=== PATIENT | female | born 1950 | race Caucasian/White ===

== ENCOUNTER 2019-09-19 12:35 | Inpatient (IN) | payer MEDICARE ==
[~2019-09-19] VITALS: Ht 167.6 cm; Wt 83.4 kg
[2019-09-19] MEDS ORDERED: SODIUM CHLORIDE 0.9% 500 ML IVB ONE (13:11)
[2019-09-19] MEDS ORDERED: SODIUM CHLORIDE 0.9% 1,000 ML IV ONE ×2 (13:11→16:00)
[2019-09-19] MEDS ORDERED: METOCLOPRAMIDE HCL 5MG/ml INJ 2ml VIAL IV ONE (13:15)
[2019-09-19] MEDS ORDERED: NALBUPHINE HCL 10 MG/1ml INJECTION IV ONE (13:15)
[2019-09-19 13:32] LABS: Basophils # (auto) 0.1 uL; Basophils % (auto) 1.1 % (0.0-2.0); Eosinophils # (auto) 0.1 uL; Eosinophils % (auto) 1.5 % (0.0-7.0); Hematocrit 47.6 % (36.0-46.0); Hemoglobin 16.4 g/dL (12.2-16.2); Lymphocytes # (auto) 2.1 uL; Lymphocytes % (auto) 29.2 % (10.0-50.0); Mean Corpuscular Hemoglobin 31.2 pg (28.0-32.0); Mean Corpuscular Hgb Conc. 34.4 g/dL (32.0-36.0); Mean Corpuscular Volume 90.8 fL (80.0-100.0); Monocytes # (auto) 0.8 uL; Monocytes % (auto) 10.8 % (0.0-12.0); Neutrophils # (auto) 4.1 uL; Neutrophils % (auto) 57.4 % (37.0-80.0); Nucleated Red Blood Cells % 0.3 %; Platelet Count (auto) 276 10^3/uL (140-450); Red Blood Cells 5.25 10^6/uL (4.0-5.20); Red Cell Distribution Width 13.7 % (11.8-14.3); White Blood Cell 7.1 10^3/uL (4.4-10.8)
[2019-09-19 13:44] LABS: Albumin 4.4 g/dL (3.4-5.0); BUN/Creatinine Ratio 7.1; Calcium 9.4 mg/dL (8.5-10.1); Magnesium 2.1 mg/dL (1.6-2.6); Potassium 4.1 mmol/L (3.5-5.1)
[2019-09-19 13:47] LABS: Bilirubin, Total 0.6 mg/dL (0.2-1.0); Total Protein 8.5 g/dL (6.4-8.2)
[2019-09-19 13:53] LABS: Urine Bacteria MANY /hpf (None Seen); Urine Blood 1+ /uL (Negative); Urine Hyaline Cast FEW /lpf (0 - 2); Urine Mucus FEW (None Seen); Urine Specific Gravity 1.014 (1.001-1.035); Urine WBC 14 /hpf (0 - 5)
[2019-09-19] MEDS ORDERED: cefTRIAXone 1GM/50ML D5W 50 ML IV ONE (14:30)
[2019-09-19] MEDS ORDERED: ONDANSETRON HCL 4 MG/2 ML VIAL IV ONE (15:45)
[2019-09-19] MEDS ORDERED: MORPHINE SULF INJ 2 MG/ML SYRINGE 1ML IV ONE (15:45)
[2019-09-19] MEDS ORDERED: NITROGLYCERIN 0.4 MG SL TAB SL PRN (16:00)
[2019-09-19] MEDS ORDERED: MORPHINE SULF INJ 2 MG/ML SYRINGE 1ML IV PRN ×2 (16:00)
[2019-09-19] MEDS ORDERED: METOPROLOL SUCCINATE XL 50 MG TAB PO ONE (16:00)
--- NOTE | 2019-09-19 17:00 | NUR ---
PATIENT ADMITTED FROM ER: PATIENT AMBULATED TO BED FROM WHEELCHAIR, RESPIRATIONS EVEN AND UNLABORED. PATIENT ORIENTED TO TELE UNIT, ROOM 217 BED B TO THIS RN. VS OBTAINED, BP 181/80, PHILLIP COTE CALLED FOR PRN. WILL ADMINISTER ORDERED. PATIENT ORIENTATED TO CALL LIGHT, AND RETURNED DEMONSTRATION. CALL LIGHT WITHIN REACH, BED IN LOWEST LOCKED POSITION, FALL PRECAUTIONS IN PLACE. WILL ENDORSE CARE TO NOC RN.
[2019-09-19 17:44] VITALS: BP 181/80
[2019-09-19 17:53] VITALS: BP 181/94
[2019-09-19] MEDS ORDERED: INFLUENZA QUAD 2019-2020 0.5ml SYRG IM ONE (18:00)
--- NOTE | 2019-09-19 18:00 | NUR ---
BLOOD PRESSURE MED GIVEN, PAIN MEDS GIVEN ORDERED. THIS RN WILL RE-ASSESS ACCORDING TO PROTOCOL.
[2019-09-19] MEDS: LABETALOL HCL 5 MG/ML ML 20ML VIAL IV PRN (18:14)
[2019-09-19] MEDS: D5W/ SOD CHL 0.9%/KCL 20MEQ 1,000 ML IV SCH ×2 (18:14→21:57)
[2019-09-19] MEDS: HYDROmorphone HCL 2 MG TAB PO PRN ×2 (18:15→23:05)
--- NOTE | 2019-09-19 19:22 | NUR ---
CARE ENDORSED TO ALYSON SEPULVEDA.
--- NOTE | 2019-09-19 19:30 | NUR ---
ASSUMED CARE, PT. AWAKE, NO C/O PAIN, NOT IN DISTRESS.
[2019-09-19 21:30] VITALS: BP 161/76
[2019-09-19] MEDS: metroNIDAZOLE 500MG/100ML 100 ML IV SCH (21:56)
[2019-09-19] MEDS: FAMOTIDINE (10MG/ML) 2ML VL IV SCH (21:56)
[2019-09-20] MEDS: LORazepam 2MG/ML-1ML VIAL IV PRN ×3 (01:00→23:28)
[2019-09-20] MEDS: HYDROmorphone HCL 2 MG TAB PO PRN ×3 (03:41→12:20)
[2019-09-20 05:00] VITALS: BP 149/85
[2019-09-20] MEDS: metroNIDAZOLE 500MG/100ML 100 ML IV SCH ×3 (05:08→21:16)
[2019-09-20 06:44] LABS: Basophils # (auto) 0.1 uL; Basophils % (auto) 0.9 % (0.0-2.0); Eosinophils # (auto) 0.2 uL; Eosinophils % (auto) 3.8 % (0.0-7.0); Hematocrit 41.9 % (36.0-46.0); Hemoglobin 14.2 g/dL (12.2-16.2); Lymphocytes # (auto) 1.2 uL; Lymphocytes % (auto) 20.2 % (10.0-50.0); Mean Corpuscular Hemoglobin 31.6 pg (28.0-32.0); Mean Corpuscular Hgb Conc. 33.9 g/dL (32.0-36.0); Mean Corpuscular Volume 93.2 fL (80.0-100.0); Monocytes # (auto) 0.7 uL; Monocytes % (auto) 11.3 % (0.0-12.0); Neutrophils # (auto) 3.9 uL; Neutrophils % (auto) 63.8 % (37.0-80.0); Nucleated Red Blood Cells % 0.1 %; Platelet Count (auto) 222 10^3/uL (140-450); Red Blood Cells 4.49 10^6/uL (4.0-5.20); Red Cell Distribution Width 13.6 % (11.8-14.3); White Blood Cell 6.1 10^3/uL (4.4-10.8)
[2019-09-20 07:13] LABS: Potassium 3.7 mmol/L (3.5-5.1)
[2019-09-20 07:19] LABS: Albumin 3.4 g/dL (3.4-5.0); Calcium 7.7 mg/dL (8.5-10.1)
--- NOTE | 2019-09-20 07:20 | NUR ---
Opening Shift Note Assumed care of patient, awake and alert x4. No S/S of distress or SOB. Right shoulder/ right sided abdominal pain reported at 9/10, will medicate per MD orders. Updated on POC and instructed to call for assistance as needed, patient verbalized understanding. Bed locked in lowest position, side rails up x2, call light within reach. Will monitor for changes Q1hr and PRN.
[2019-09-20 07:21] LABS: Bilirubin, Total 0.5 mg/dL (0.2-1.0); Total Protein 6.9 g/dL (6.4-8.2)
[2019-09-20] MEDS: cefTRIAXone 1GM/50ML D5W 50 ML IV SCH (08:20)
[2019-09-20 09:00] VITALS: BP 180/79
--- NOTE | 2019-09-20 09:05 | NUR ---
EKG completed and in chart
[2019-09-20] MEDS: LISINOPRIL 10 MG TAB PO SCH (09:48)
[2019-09-20] MEDS: METOPROLOL SUCCINATE XL 50 MG TAB PO SCH (09:49)
[2019-09-20] MEDS: FAMOTIDINE (10MG/ML) 2ML VL IV SCH ×2 (09:49→21:17)
[2019-09-20] MEDS: D5W/ SOD CHL 0.9%/KCL 20MEQ 1,000 ML IV SCH ×2 (09:49→20:04)
--- NOTE | 2019-09-20 12:00 | NUR ---
IV removal IV DC'd with clean sterile technique, catheter fully intact. Pressure dressing applied to site. Patient tolerated well. NOTE: [Left Ac leaking]
--- NOTE | 2019-09-20 12:30 | NUR ---
IV insertion IV access obtained, via clean sterile technique by inserting 20 gauge catheter at right AC after 3 attempt(s). IV secured properly. No trauma to site. Patient tolerated well.
[2019-09-20] MEDS ORDERED: HYDROmorphone HCL 2 MG TAB PO ONE (12:45)
--- NOTE | 2019-09-20 14:45 | NUR ---
Patient complains of lower right chest pain Stat EKG performed and strip read by Dr. Spence. Vitals stable: BP 151/89, HR 73, O2 96%, RR 18. Notified RANGE ECOLOGIST Richardson of EKG reading, no new orders were received. Pain is not cardiac related per RANGE ECOLOGIST Richardson. Administered Ativan per MD orders .
[2019-09-20 17:27] VITALS: BP 180/96
[2019-09-20 17:29] VITALS: BP 153/87
--- NOTE | 2019-09-20 18:00 | NUR ---
PAGED HOSPITALIST REGARDING PATIENT REQUESTING ATIVAN MORE FREQUENT THEN PRN 12 HOURS.
--- NOTE | 2019-09-20 18:20 | NUR ---
SPOKE WITH DR. EDWARDS RECEIVED NEW ORDERS FOR ATIVAN Q6HR PRN.
--- NOTE | 2019-09-20 18:57 | NUR ---
Patient Rounds Patient resting in bed with eyes closed, no s/s of distress or SOB. Will endorse care to hotel night auditor RN.
--- NOTE | 2019-09-20 19:55 | NUR ---
ASSUMED CARE, PT. AWAKE, NO C/O PAIN AT THIS TIME, NOT IN DISTRESS.
[2019-09-20] MEDS: TEMAZEPAM 15 MG CAP PO PRN (20:04)
[2019-09-20 22:00] VITALS: BP 159/87
--- NOTE | 2019-09-20 23:00 | NUR ---
pt. got confused pulled out her iv, and crying, re: orient pt. to her name, place, age and time, pt. answers well, to keep monitor.
[2019-09-21] MEDS: HYDROmorphone HCL 2 MG TAB PO PRN ×4 (02:17→22:59)
[2019-09-21 05:00] VITALS: BP 150/83
[2019-09-21] MEDS: metroNIDAZOLE 500MG/100ML 100 ML IV SCH ×3 (05:01→22:32)
--- NOTE | 2019-09-21 06:20 | NUR ---
v/s stable, no periods of confusion, npo maintained, no c/o pain, no sob.
--- NOTE | 2019-09-21 07:30 | NUR ---
Opening Shift Note Assumed care of patient, awake and alert. No S/S of distress/SOB or pain. Bed is in lowest position with 2x side rails up for safety. Instructed on POC and to call for assist PRN, will continue to monitor for changes Q1hr and PRN.
[2019-09-21 08:00] VITALS: BP 146/88
[2019-09-21] MEDS: D5W/ SOD CHL 0.9%/KCL 20MEQ 1,000 ML IV SCH ×2 (08:00→18:00)
[2019-09-21 08:35] VITALS: BP 146/88
[2019-09-21 08:38] LABS: INR 1.04 (0.9-1.15); Partial Thromboplastin Time 25.9 sec (23.64-32.05)
[2019-09-21] MEDS: cefTRIAXone 1GM/50ML D5W 50 ML IV SCH (08:59)
[2019-09-21] MEDS: LORazepam 2MG/ML-1ML VIAL IV PRN ×2 (08:59→20:52)
--- NOTE | 2019-09-21 09:37 | NUR ---
PATIENT CLEARED FROM CARDIOLOGY JOVANNA CHAVEZ NP. ECHO READ BY TIMOTHY EF 55% . WILL PAGE DR BREEN PER DR MOTA REQUEST TO NOTIFY THAT PATIENT IS CLEARED.
[2019-09-21] MEDS: FAMOTIDINE (10MG/ML) 2ML VL IV SCH ×2 (10:10→22:31)
[2019-09-21] MEDS: LISINOPRIL 10 MG TAB PO SCH (10:11)
[2019-09-21] MEDS: METOPROLOL SUCCINATE XL 50 MG TAB PO SCH (10:13)
--- NOTE | 2019-09-21 10:30 | NUR ---
DR MOTA AT NURSING STATION. DR MOTA CALLED DR BREEN PERSONALLY REGARDING CARDIAC CLEARANCE AND THE NEED FOR SURGERY.
[2019-09-21 13:00] VITALS: BP 137/83
[2019-09-21] MEDS: ACETAMINOPHEN 500 MG TAB PO PRN (13:11)
--- NOTE | 2019-09-21 13:45 | NUR ---
Patient taken down for scheduled surgery.
[2019-09-21] MEDS ORDERED: LIDOCAINE W/ EPINEPHRINE 2% INJ 20ML VIAL ONE (14:06)
[2019-09-21] MEDS ORDERED: SUCCINYLCHOLINE CHLORIDE 20 MG/ML 10ML VIAL IV ONE (14:06)
[2019-09-21] MEDS ORDERED: DOXAPRAM HCL 20 MG/ML 20ML VIAL INJ IV ONE (14:07)
[2019-09-21] MEDS ORDERED: SODIUM CHLORIDE LOCK 10 ML ONE (14:14)
[2019-09-21] MEDS ORDERED: ROCURONIUM 10MG/ML 10ML VIAL IV ONE (14:14)
[2019-09-21] MEDS ORDERED: PROPOFOL 10 MG/ML 20 ML IV ONE (14:14)
[2019-09-21] MEDS ORDERED: MIDAZOLAM HCL 1MG/1ML-2 ML VIAL ONE (14:14)
[2019-09-21] MEDS ORDERED: ONDANSETRON HCL 4 MG/2 ML VIAL ONE (14:14)
[2019-09-21] MEDS ORDERED: NEOSTIGMINE 1 MG/ML INJ (10mg/10ML VIAL) ONE (14:14)
[2019-09-21] MEDS ORDERED: HYDROmorphone HCL 2 MG/ML VL ONE ×2 (14:14→17:33)
[2019-09-21] MEDS ORDERED: GLYCOPYRROLATE 0.2 MG/ML 1ML VIAL ONE (14:14)
[2019-09-21] MEDS ORDERED: fentaNYL CITRATE 100 MCG/2 ML VL ONE (14:14)
[2019-09-21] MEDS ORDERED: METOCLOPRAMIDE HCL 5MG/ml INJ 2ml VIAL IV PRN (14:45)
[2019-09-21] MEDS ORDERED: MORPHINE SULF INJ 2 MG/ML SYRINGE 1ML IV PRN (14:45)
[2019-09-21] MEDS ORDERED: fentaNYL CITRATE 100 MCG/2 ML VL IV PRN (14:45)
[2019-09-21] MEDS ORDERED: ceFAZolin 1GM/50ML 50 ML IV ONE (14:49)
[2019-09-21] MEDS ORDERED: BUPIVACAINE 0.25% INJ 50ML VIAL ONE (16:25)
[2019-09-21] MEDS: HYDROmorphone HCL 2 MG/ML VL IV PRN ×2 (17:35→17:45)
--- NOTE | 2019-09-21 17:59 | NUR ---
PT DOWN FOR PROCEDURE Addendum: 09/21/19 at 1800 by Zina Lee RN RN Amended: Links added.
[2019-09-21 21:43] VITALS: BP 146/94
--- NOTE | 2019-09-21 23:08 | NUR ---
IV insertion IV access obtained, via clean sterile technique by inserting 22 gauge catheter at left hand after 1 attempt. IV secured properly. No trauma to site. Patient tolerated well.
--- NOTE | 2019-09-21 23:13 | NUR ---
IV removal IV DC'd with clean sterile technique, catheter fully intact. Pressure dressing applied to site. Patient tolerated well.
[2019-09-21] MEDS: TEMAZEPAM 15 MG CAP PO PRN (23:55)
[2019-09-22] MEDS: HYDROmorphone HCL 2 MG TAB PO PRN ×4 (03:36→22:08)
[2019-09-22] MEDS: LORazepam 2MG/ML-1ML VIAL IV PRN ×3 (03:42→18:34)
[2019-09-22] MEDS: D5W/ SOD CHL 0.9%/KCL 20MEQ 1,000 ML IV SCH ×2 (04:00→14:14)
[2019-09-22 05:07] VITALS: BP 148/94
[2019-09-22] MEDS: metroNIDAZOLE 500MG/100ML 100 ML IV SCH ×3 (05:56→22:07)
[2019-09-22 08:15] VITALS: BP 146/88
--- NOTE | 2019-09-22 08:15 | NUR ---
Opening Note Received report on the patient. Awake lying in bed eating breakfast. Patient shows no signs of distress at this time. Discussed plan of care with the patient. Bed is in the lowest position, side rails up x2, and the call light is within reach. Will continue to monitor.
[2019-09-22 09:00] VITALS: BP 156/94
[2019-09-22] MEDS: cefTRIAXone 1GM/50ML D5W 50 ML IV SCH (09:07)
[2019-09-22] MEDS: METOPROLOL SUCCINATE XL 50 MG TAB PO SCH (09:08)
[2019-09-22] MEDS: FAMOTIDINE (10MG/ML) 2ML VL IV SCH ×2 (09:09→22:07)
[2019-09-22] MEDS: ACETAMINOPHEN 500 MG TAB PO PRN (09:10)
[2019-09-22] MEDS: LISINOPRIL 10 MG TAB PO SCH (09:10)
[2019-09-22 12:30] VITALS: BP 144/92
--- NOTE | 2019-09-22 16:00 | NUR ---
PT REPORTS THAT SHE JUST WALKED BACK FROM THE BATHROOM AND IS TIRED. ATTEMPT P.T. TOMORROW.
[2019-09-22 16:57] VITALS: BP 159/88
[2019-09-22] MEDS: TEMAZEPAM 15 MG CAP PO PRN (18:37)
--- NOTE | 2019-09-22 19:20 | NUR ---
OPENING SHIFT NOTE Assumed care of patient who is A&O x4. Currently on RA with no s/s of SOB or distress. Reports 7/10 abdominal pain. Discussed pain medication schedule with patient, who verbalizes understanding. Abdominal binder is in place. Patient is ambulating to restroom with standby assist. POC discussed with patient who verbalizes understanding. Bed is in low locked position with side rails up x2. Call light is within reach and patient encouraged to call for assistance when needed. Will continue to monitor for changes PRN.
[2019-09-22 22:00] VITALS: BP 149/71
--- NOTE | 2019-09-22 22:13 | NUR ---
Urine sample collected and sent to lab via tube system.
[2019-09-23] VITALS (7 sets, daily range): BP systolic 135–155; BP diastolic 76–97
[2019-09-23] MEDS: LORazepam 2MG/ML-1ML VIAL IV PRN ×2 (01:07→17:28)
--- NOTE | 2019-09-23 03:36 | NUR ---
Heart rate increased to 126. Patient is currently ambulating to the restroom. Assisted patient from restroom back to bed. Call light placed within reach. Heart rate decreased to 93 once back in bed.
[2019-09-23] MEDS: HYDROmorphone HCL 2 MG TAB PO PRN (04:48)
[2019-09-23] MEDS: metroNIDAZOLE 500MG/100ML 100 ML IV SCH ×3 (05:41→21:30)
--- NOTE | 2019-09-23 06:28 | NUR ---
Patient up to restroom. Ambulating well with standby assist.
--- NOTE | 2019-09-23 08:10 | NUR ---
Opening Shift Note Received report on the patient. Awake lying in bed. Patient shows no signs of distress at this time. Discussed the plan of care with the patient. Bed is in the lowest position, side rails up x2, and call light is within reach. Will continue to monitor.
[2019-09-23] MEDS: cefTRIAXone 1GM/50ML D5W 50 ML IV SCH (09:16)
[2019-09-23] MEDS: FAMOTIDINE (10MG/ML) 2ML VL IV SCH ×2 (09:16→21:30)
[2019-09-23] MEDS: LISINOPRIL 10 MG TAB PO SCH (09:19)
[2019-09-23] MEDS: METOPROLOL SUCCINATE XL 50 MG TAB PO SCH (09:20)
[2019-09-23] MEDS: D5W/ SOD CHL 0.9%/KCL 20MEQ 1,000 ML IV SCH ×3 (09:22→20:00)
--- NOTE | 2019-09-23 11:10 | NUR ---
Nutrition Assessment Notes please see attached link for complete assessment Est. Needs ABW 71 [id number] kcal (23-25 kcal/kgBW), 71-78 gms pro (1.0-1.1 gms/kgBW). Will continue to monitor pertinent labs and reassess nutrient need prn Addendum: 09/23/19 at [address] Amended: Links added.
--- NOTE | 2019-09-23 19:50 | NUR ---
Opening shift note Assumed care of patient who is currently resting on right side with eyes closed. Respirations are even and non-labored. No distress noted. 22g IV in left hand intact and patent. Flushed with 10ml NS. Bed is in low locked position with side rails up x2. Call light is within reach and patient encouraged to call for assistance when needed. Will continue to monitor for changes PRN.
[2019-09-23] MEDS: TEMAZEPAM 15 MG CAP PO PRN (20:29)
--- NOTE | 2019-09-23 20:57 | NUR ---
IV Leaking IV in left hand is leaking. New IV access obtained, via clean sterile technique by inserting 22 gauge catheter at left wrist after 2 attempts. IV secured properly. No trauma to site. Patient tolerated well. IV removal IV in left hand DC'd with clean sterile technique, catheter fully intact. Pressure dressing applied to site. Patient tolerated well.
[2019-09-24] MEDS: ACETAMINOPHEN 500 MG TAB PO PRN (03:01)
--- NOTE | 2019-09-24 03:04 | NUR ---
patient c/o PAYNE. Medicated with Acetaminophen per orders. Patient states that while using the restroom she inadvertently urinated on part of her gown. Patient has removed the gown and is declining putting on a new gown. Clean gown set at the bedside and patient instructed to put in on prior to getting up. Patient verbalizes understanding.
[2019-09-24 04:30] VITALS: BP 157/82
[2019-09-24] MEDS: HYDROmorphone HCL 2 MG TAB PO PRN ×3 (04:56→21:30)
[2019-09-24] MEDS: metroNIDAZOLE 500MG/100ML 100 ML IV SCH ×3 (05:45→21:28)
[2019-09-24] MEDS: LORazepam 2MG/ML-1ML VIAL IV PRN ×3 (05:46→21:29)
[2019-09-24] MEDS: D5W/ SOD CHL 0.9%/KCL 20MEQ 1,000 ML IV SCH ×2 (06:00→16:00)
--- NOTE | 2019-09-24 06:41 | NUR ---
Rounds Patient is resting in bed on left side with eyes closed. No distress noted.
[2019-09-24 08:00] VITALS: BP 156/93
[2019-09-24] MEDS: cefTRIAXone 1GM/50ML D5W 50 ML IV SCH (09:40)
[2019-09-24] MEDS: FAMOTIDINE (10MG/ML) 2ML VL IV SCH ×2 (09:40→21:29)
[2019-09-24] MEDS: LISINOPRIL 10 MG TAB PO SCH (09:41)
[2019-09-24] MEDS: METOPROLOL SUCCINATE XL 50 MG TAB PO SCH (09:41)
[2019-09-24 12:00] VITALS: BP_SYST 139; BP_SYST 155; BP_DIAS 74; BP_DIAS 87
--- NOTE | 2019-09-24 15:32 | NUR ---
AT BEDSIDE DR GUARDADO AT BEDSIDE, DISCUSSING POC WITH PT, PER MD HE WILL ORDER GI CONSULT, PATIENT REPORTS N/V AFTER EACH MEAL, CONT CARE
--- NOTE | 2019-09-24 15:45 | NUR ---
AMBULATION PT AMBULATING, GAIT STEADY, NO DISTRESS NOTED, CONT CARE
--- NOTE | 2019-09-24 16:35 | NUR ---
PAGED DR GUARDADO PAGED, PATIENT C/O PAIN AND CURRENT MEDICATION ORDERED FOR PAIN, NOT DUE, DR GUARDADO CALLED BACK @ 4896, NEW ORDERS RECEIVED FOR NORCO 5/325 MG PO 1 TAB Q6PRN, RBP, CONT CARE
[2019-09-24 17:00] VITALS: BP 152/87
[2019-09-24] MEDS: HYDROcodone-ACET 5/325MG TAB PO PRN (17:39)
[2019-09-24] MEDS: SUCRALFATE 1 GM TAB PO SCH ×2 (17:41→21:29)
--- NOTE | 2019-09-24 19:30 | NUR ---
RECEIVED PATIENT IN BED, AAOX4. NO DISTRESS NOTED. AFEBRILE. INTRODUCED MYSELF TO THE PATIENT. ORIENTATION GIVEN. PATIENT IS ANXIOUS. COMPLAINED OF MILD ABDOMINAL PAIN, BUT TOLERABLE FOR NOW. POCS DISCUSSED WITH PATIENT AND SHOWED UNDERSTANDING. BED KEPT ON LOWEST POSITION. SIDE RAILS UP. CALL LIGHT/TABLE IN REACH. ENCOURAGED AMBULATION WELL. KEPT COMFORTABLE.
[2019-09-24 21:00] VITALS: BP 163/109
[2019-09-24] MEDS: ONDANSETRON HCL 4 MG/2 ML VIAL IV PRN (21:30)
[2019-09-24 22:00] VITALS: BP 155/85
[2019-09-25] VITALS (7 sets, daily range): BP systolic 126–162; BP diastolic 66–100
[2019-09-25] MEDS: D5W/ SOD CHL 0.9%/KCL 20MEQ 1,000 ML IV SCH ×3 (02:08→21:09)
[2019-09-25] MEDS: LORazepam 2MG/ML-1ML VIAL IV PRN ×3 (04:35→21:10)
[2019-09-25] MEDS: metroNIDAZOLE 500MG/100ML 100 ML IV SCH (06:05)
[2019-09-25] MEDS: SUCRALFATE 1 GM TAB PO SCH ×4 (06:06→21:09)
--- NOTE | 2019-09-25 06:07 | NUR ---
ON BED, ASLEEP. STABLE. NO DISTRESS NOTED. FOR MORE CARE AND MANAGEMENT.
[2019-09-25] MEDS: HYDROmorphone HCL 2 MG TAB PO PRN ×2 (06:33→21:10)
[2019-09-25 06:34] LABS: Basophils # (auto) 0.1 uL; Basophils % (auto) 1.8 % (0.0-2.0); Eosinophils # (auto) 0.5 uL; Eosinophils % (auto) 9.8 % (0.0-7.0); Hematocrit 40.4 % (36.0-46.0); Hemoglobin 13.8 g/dL (12.2-16.2); Lymphocytes % (auto) 19.1 % (10.0-50.0); Mean Corpuscular Hemoglobin 31.2 pg (28.0-32.0); Mean Corpuscular Hgb Conc. 34.1 g/dL (32.0-36.0); Mean Corpuscular Volume 91.3 fL (80.0-100.0); Monocytes # (auto) 0.8 uL; Monocytes % (auto) 15.4 % (0.0-12.0); Neutrophils # (auto) 2.8 uL; Neutrophils % (auto) 53.9 % (37.0-80.0); Nucleated Red Blood Cells % 0.2 %; Platelet Count (auto) 209 10^3/uL (140-450); Red Blood Cells 4.43 10^6/uL (4.0-5.20); Red Cell Distribution Width 13.6 % (11.8-14.3); White Blood Cell 5.2 10^3/uL (4.4-10.8)
[2019-09-25 06:43] LABS: Potassium 3.4 mmol/L (3.5-5.1)
[2019-09-25 06:47] LABS: BUN/Creatinine Ratio 7.4; Calcium 8.1 mg/dL (8.5-10.1)
--- NOTE | 2019-09-25 08:00 | NUR ---
Opening Shift Note Assumed care of patient, awake and alert. No S/S of distress/SOB or pain. Instructed on POC and to call for assist PRN, will continue to monitor for changes Q1hr and PRN.
[2019-09-25] MEDS ORDERED: POTASSIUM CHLORIDE 20 MEQ, LIDOCAINE 1% (LOCAL ANESTH.) 2 ML in SODIUM CHL 0.9% 100 ML IV ONE (09:15)
[2019-09-25] MEDS: FAMOTIDINE (10MG/ML) 2ML VL IV SCH (10:33)
[2019-09-25] MEDS: cefTRIAXone 1GM/50ML D5W 50 ML IV SCH (10:33)
[2019-09-25] MEDS: LISINOPRIL 10 MG TAB PO SCH (10:34)
[2019-09-25] MEDS: METOPROLOL SUCCINATE XL 50 MG TAB PO SCH (10:34)
[2019-09-25] MEDS: HYDROcodone-ACET 5/325MG TAB PO PRN (10:40)
[2019-09-25] MEDS: ONDANSETRON HCL 4 MG/2 ML VIAL IV PRN ×2 (13:33→21:10)
--- NOTE | 2019-09-25 13:52 | NUR ---
GI consult Dr. Garcia at bedside, patient was advised. Patient is for EGD on 09/28/19.
--- NOTE | 2019-09-25 19:30 | NUR ---
RECEIVED PATIENT IN BED, AAOX4. NO DISTRESS NOTED. AFEBRILE. INTRODUCED MYSELF TO THE PATIENT. ORIENTATION GIVEN. PATIENT IS CRYING AND IS VERY ANXIOUS. COMPLAINED OF ABDOMINAL PAIN. WILL MEDICATE PATIENT. POCS DISCUSSED WITH PATIENT AND SHOWED UNDERSTANDING. BED KEPT ON LOWEST POSITION. SIDE RAILS UP. CALL LIGHT/TABLE IN REACH. ENCOURAGED AMBULATION WELL. KEPT COMFORTABLE.
[2019-09-25] MEDS: PANTOPRAZOLE 40 MG TAB PO SCH (21:09)
--- NOTE | 2019-09-25 21:30 | NUR ---
DR Tung BREEN IN TO SEE PATIENT.
[2019-09-26 05:00] VITALS: BP 149/90
[2019-09-26 05:52] LABS: Basophils # (auto) 0.1 uL; Basophils % (auto) 0.9 % (0.0-2.0); Eosinophils # (auto) 0.3 uL; Eosinophils % (auto) 4.8 % (0.0-7.0); Hematocrit 40.9 % (36.0-46.0); Hemoglobin 13.9 g/dL (12.2-16.2); Lymphocytes # (auto) 1.3 uL; Lymphocytes % (auto) 19.9 % (10.0-50.0); Mean Corpuscular Volume 91.3 fL (80.0-100.0); Monocytes # (auto) 0.8 uL; Monocytes % (auto) 12.6 % (0.0-12.0); Neutrophils # (auto) 3.9 uL; Neutrophils % (auto) 61.8 % (37.0-80.0); Nucleated Red Blood Cells % 0.1 %; Platelet Count (auto) 231 10^3/uL (140-450); Red Blood Cells 4.48 10^6/uL (4.0-5.20); Red Cell Distribution Width 13.5 % (11.8-14.3); White Blood Cell 6.4 10^3/uL (4.4-10.8)
[2019-09-26] MEDS: SUCRALFATE 1 GM TAB PO SCH ×4 (06:10→21:25)
[2019-09-26] MEDS: HYDROcodone-ACET 5/325MG TAB PO PRN ×2 (06:10→17:07)
--- NOTE | 2019-09-26 06:17 | NUR ---
ON BED, ASLEEP. STABLE. NO DISTRESS NOTED. FOR MORE CARE AND MANAGEMENT.
[2019-09-26 06:19] LABS: Calcium 8.3 mg/dL (8.5-10.1); Potassium 3.5 mmol/L (3.5-5.1)
[2019-09-26 06:22] LABS: BUN/Creatinine Ratio 9.4
[2019-09-26 09:00] VITALS: BP 160/98
[2019-09-26] MEDS: D5W/ SOD CHL 0.9%/KCL 20MEQ 1,000 ML IV SCH ×2 (09:19→17:08)
[2019-09-26] MEDS: PANTOPRAZOLE 40 MG TAB PO SCH ×2 (09:42→21:25)
[2019-09-26] MEDS: METOPROLOL SUCCINATE XL 50 MG TAB PO SCH (09:42)
[2019-09-26] MEDS: cefTRIAXone 1GM/50ML D5W 50 ML IV SCH (09:42)
[2019-09-26] MEDS: LISINOPRIL 10 MG TAB PO SCH (09:43)
[2019-09-26] MEDS: LORazepam 2MG/ML-1ML VIAL IV PRN ×2 (09:54→22:48)
[2019-09-26] MEDS: HYDROmorphone HCL 2 MG TAB PO PRN ×2 (11:33→20:13)
[2019-09-26 13:00] VITALS: BP 153/83
--- NOTE | 2019-09-26 14:12 | NUR ---
Nutrition Follow-up Notes Wt.: 83.4 kg Pt was sleeping with no family by bedside. per records pt s/p lap thor 09/21. pt to have EGD 09/28 as pt with N.V. pt with no distress noted currently on [facility] soft diet with inadequate PO of 50% x 4 per RN doc Est. Needs ABW 71 [id number] kcal (23-25 kcal/kgBW), 71-78 gms pro (1.0-1.1 gms/kgBW). Will continue to monitor pertinent labs and reassess nutrient need prn Labs: GLU 115 H, CA 8.3 L. Skin: Ger scale 20 low risk, incision at site of sx per RN doc GI: Pt has no BM reported per bobbin drier. PES: Altered nutrition related lab values r/t current/chronic medical condition aeb hyperglycemia, hypocalcemia Decreased nutrient needs r/t adiposity aeb pt`s high BMI of 30.0 kg kgm2 Will continue to monitor PO intake, skin status, pertinent labs and weight trend. F/u in 3-5 days. Rec.: 1.) consider ensure enlive 1 carton bid if PO is low. 2) advance diet as medically feasible. 3) refer to [employer] dietitian on DC. 4) continue current plan of care
[2019-09-26 17:00] VITALS: BP 169/88
[2019-09-26] MEDS: LABETALOL HCL 5 MG/ML ML 20ML VIAL IV PRN (18:19)
--- NOTE | 2019-09-26 19:30 | NUR ---
RECEIVED PATIENT FROM DAY SHIFT RN. PATIENT RESTING IN BED. NO S/S OF DISTRESS NOTED. C/O PAIN @ 610 AFTER NORCO GIVEN EARLIER. WILL COME BACK FOR OTHER PAIN MEDICATION LATER PER PATIENT REQUESTS. DRESSING ON ABD C/D/I WITH ABD BINDER ON. POC INSTRUCTED AND ENCOURAGED PATIENT TO CALL FOR CAGE CLERK IF NEEDED. BED IN LOWEST POSITION WITH SIDE RAILS UP X 2. CALL BROWNING WITHIN REACH. CONTINUE TO MONITOR FOR CHANGES Q1H AND PRN.
[2019-09-26] MEDS: TEMAZEPAM 15 MG CAP PO PRN (21:25)
[2019-09-26 22:00] VITALS: BP 137/74
--- NOTE | 2019-09-27 01:12 | NUR ---
ASSISTED PATIENT TO BATHROOM. PATIENT WALKED WELL WITH STEADY GAIT. NO S/S OF DISTRESS NOTED. CONTINUE CARE.
[2019-09-27] MEDS: HYDROmorphone HCL 2 MG TAB PO PRN (02:27)
--- NOTE | 2019-09-27 02:27 | NUR ---
MEDICATED PATIENT FOR PAIN @ 06/23. CONTINUE TO MONITOR.
[2019-09-27] MEDS: HYDROcodone-ACET 5/325MG TAB PO PRN (04:26)
--- NOTE | 2019-09-27 04:27 | NUR ---
PATIENT STILL C/O PAIN. MEDICATED PATIENT FOR PAIN @ 07/24. CONTINUE TO MONITOR.
[2019-09-27 05:00] VITALS: BP 146/85
[2019-09-27] MEDS: D5W/ SOD CHL 0.9%/KCL 20MEQ 1,000 ML IV SCH (05:13)
[2019-09-27] MEDS: LORazepam 2MG/ML-1ML VIAL IV PRN ×2 (05:13→10:11)
--- NOTE | 2019-09-27 05:13 | NUR ---
PATIENT IS ANXIOUS. MEDICATED PATIENT ORDERED. CONTINUE TO MONITOR.
[2019-09-27] MEDS: SUCRALFATE 1 GM TAB PO SCH (07:14)
[2019-09-27] MEDS: ONDANSETRON HCL 4 MG/2 ML VIAL IV PRN (07:35)
[2019-09-27 09:20] VITALS: BP 151/77
[2019-09-27] MEDS: LISINOPRIL 10 MG TAB PO SCH (09:53)
[2019-09-27] MEDS: METOPROLOL SUCCINATE XL 50 MG TAB PO SCH (09:54)
[2019-09-27] MEDS: PANTOPRAZOLE 40 MG TAB PO SCH (09:54)
[2019-09-27] MEDS: cefTRIAXone 1GM/50ML D5W 50 ML IV SCH (09:55)
[2019-09-27 10:35] VITALS: BP 151/77
--- NOTE | 2019-09-27 11:50 | NUR ---
Discharge instructions given as ordered. Encourage to follow up with PMD Dr. Nakia Elizondo on 10-03-19 at 1:45pm # [phone] as instructed. Follow up with GI-Dr. Garcia on 10-16-19 at 8:45am #[phone] ext. [phone] [phone] [phone] and call to make appointment to Dr. Morris's office # [phone]. All questions and concerns addressed. Patient verbalized understanding. Medication reconciliation form completed and copy given to patient. IV removed with catheter intact, pressure dressing applied. Telemetry unit returned to ICU. Patient taken to vehicle via wheelchair with all personal belongings, accompanied by staff and family member. No distress noted at time of departure.
== END 2019-09-27 11:50 | disposition home or self-care (01) | DRG 418 ==
LOC: ER 12:47 → TELE-CENTR 12:48
PROVIDERS: ADMIT Nurse Practitioner Acute Care; ATTEND Family Medicine
PROC: 0FT44ZZ Resection of Gallbladder, Percutaneous Endoscopic Approach (ICD-10-PCS; principal; 2019-09-21 16:02)
DX: K80.00 Calculus of gallbladder with acute cholecystitis without obstruction (principal); N30.00 Acute cystitis without hematuria; I10 Essential (primary) hypertension; K21.9 Gastro-esophageal reflux disease without esophagitis; E66.9 Obesity, unspecified; K76.0 Fatty (change of) liver, not elsewhere classified; K57.30 Diverticulosis of large intestine without perforation or abscess without bleeding; F32.9 Major depressive disorder, single episode, unspecified; Z83.3 Family history of diabetes mellitus; Z88.8 Allergy status to other drugs, medicaments and biological substances
CPT/HCPCS: 36415; 71045; 74176; 80048; 80053; 81001; 83690; 83735; 84484; 85025; 85610; 85730; 86850; 86900; 86901; 87086; 93306; 96361; 96365; 96375; 97163; G0378; J0330; J0690; J0696; J2001; J2250; J2405; J2704; J3490

== ENCOUNTER 2020-04-01 12:48 | Inpatient (IN) | payer MEDICARE ==
[~2020-04-01] VITALS: Ht 167.6 cm; Wt 83.4 kg
[2020-04-01] MEDS ORDERED: SODIUM CHLORIDE 0.9% 1,000 ML IV ONE ×2 (12:58)
[2020-04-01 13:32] LABS: Basophils # (auto) 0.1 10 ^3/uL (0-0.2); Basophils % (auto) 0.6 % (0.0-2.0); Eosinophils # (auto) 0 10 ^3/uL (0-0.8); Hematocrit 48.7 % (36.0-46.0); Hemoglobin 16.7 g/dL (12.2-16.2); Lymphocytes # (auto) 1.1 10 ^3/uL (0.4-5.4); Lymphocytes % (auto) 10.2 % (10.0-50.0); Mean Corpuscular Hemoglobin 32.7 pg (28.0-32.0); Mean Corpuscular Hgb Conc. 34.4 g/dL (32.0-36.0); Mean Corpuscular Volume 95.2 fL (80.0-100.0); Monocytes % (auto) 9.4 % (0.0-12.0); Neutrophils # (auto) 8.3 10 ^3/uL (1.6-8.6); Neutrophils % (auto) 79.8 % (37.0-80.0); Nucleated Red Blood Cells % 0.1 %; Platelet Count (auto) 247 10^3/uL (140-450); Red Blood Cells 5.12 10^6/uL (4.0-5.20); Red Cell Distribution Width 15.5 % (11.8-14.3); White Blood Cell 10.4 10^3/uL (4.4-10.8)
[2020-04-01] MEDS ORDERED: ONDANSETRON HCL 4 MG/2 ML VIAL IV ONE (13:45)
[2020-04-01] MEDS ORDERED: LORazepam 2MG/ML-1ML VIAL IV ONE (13:45)
[2020-04-01 13:47] LABS: INR 1.11 (0.9-1.15); Partial Thromboplastin Time 26.5 sec (23.64-32.05)
[2020-04-01 13:49] LABS: Albumin 4.5 g/dL (3.4-5.0); Calcium 9.7 mg/dL (8.5-10.1)
[2020-04-01 13:55] LABS: BUN/Creatinine Ratio 13.6; Bilirubin, Total 2.3 mg/dL (0.2-1.0); Total Protein 8.9 g/dL (6.4-8.2)
[2020-04-01 13:58] LABS: Potassium 2.8 mmol/L (3.5-5.1)
[2020-04-01] MEDS ORDERED: POTASSIUM CHL 20MEQ/100ML 100 ML IV ONE ×3 (14:00→17:00)
[2020-04-01] MEDS ORDERED: MAGNESIUM SULFATE 1GM/100ML 100 ML IV ONE (14:45)
[2020-04-01] MEDS: POTASSIUM CHL 20 Meq TABLET PO SCH ×2 (14:45→16:45)
[2020-04-01] MEDS ORDERED: D5W/SOD CHL 0.45%/KCL 40MEQ 1,000 ML IV SCH (14:45)
[2020-04-01] MEDS ORDERED: FUROSEMIDE 20 MG/2 ML VIAL IV ONE (14:45)
[2020-04-01] MEDS ORDERED: hydrALAZINE HCL 20 MG/ML VL IV PRN (15:00)
[2020-04-01] MEDS ORDERED: HYDROcodone-ACET 5/325MG TAB PO PRN (15:00)
[2020-04-01] MEDS ORDERED: MORPHINE SULF INJ 2 MG/ML SYRINGE 1ML IV PRN ×2 (15:00)
[2020-04-01] MEDS ORDERED: ALUM & MAG HYDROX-SIMETH LIQ(MAALOX) 30 ML PO PRN (15:00)
[2020-04-01] MEDS ORDERED: NITROGLYCERIN 0.4 MG SL TAB SL PRN (15:00)
[2020-04-01] MEDS ORDERED: ONDANSETRON HCL 4 MG/2 ML VIAL IV PRN (15:00)
[2020-04-01] MEDS ORDERED: DOCUSATE SOD 100 MG CAP PO PRN (15:00)
[2020-04-01] MEDS ORDERED: cloNIDine HCL 0.1 MG TAB PO PRN (16:45)
[2020-04-01] MEDS ORDERED: ALBUTEROL SULF 2.5 MG/0.5ML(0.5%) NEB SOLN NEB PRN (16:45)
[2020-04-01] MEDS ORDERED: IPRATROPIUM BROM 0.5 MG/2.5ML INH SOL NEB PRN ×2 (16:45→19:15)
[2020-04-01] MEDS ORDERED: AMIODARONE HCL 150 MG in D5W 5% 100 ML IV ONE (17:00)
[2020-04-01] MEDS ORDERED: AMIODARONE 450mg/250ml AE 250 ML IV SCH ×2 (17:04→23:05)
[2020-04-01 17:53] LABS: Urine Bacteria NONE SEEN /hpf (None Seen); Urine Blood TRACE /uL (Negative); Urine Hyaline Cast FEW /lpf (0 - 2); Urine Specific Gravity 1.007 (1.001-1.035); Urine WBC 1 /hpf (0 - 5)
[2020-04-01 18:06] LABS: Alcohol, Urine < 3.0 mg/dL (0-5); Amphetamine Screen, Urine NEGATIVE (NEGATIVE); Barbiturate Scree,Urine NEGATIVE (NEGATIVE); Benzodiazephine Screen, Urine NEGATIVE (NEGATIVE); Cannabinoid Screen, Urine NEGATIVE (NEGATIVE); Cocaine Screen, Urine NEGATIVE (NEGATIVE); Opiate Scree,Urine NEGATIVE (NEGATIVE); Phencyclidine Screen, Urine NEGATIVE (NEGATIVE)
[2020-04-01] MEDS: FUROSEMIDE 20 MG/2 ML VIAL IV SCH (18:27)
[2020-04-01] MEDS: METOPROLOL TARTRATE 1MG/1ML-5ML VIAL IV SCH (18:27)
[2020-04-01 18:46] VITALS: BP 147/87
[2020-04-01 18:58] VITALS: BP 147/67
[2020-04-01] MEDS ORDERED: LORazepam 2MG/ML-1ML VIAL IV PRN (19:15)
[2020-04-01 22:00] VITALS: BP 130/79
[2020-04-01] MEDS: LORazepam 0.5 MG TAB PO PRN (22:51)
[2020-04-01] MEDS: ATORVASTATIN 20 MG TAB PO SCH (22:52)
[2020-04-01] MEDS: traZODone HCL 50 MG TAB PO SCH (22:52)
[2020-04-01] MEDS: NORTRIPTYLINE HCL 10 MG CAP PO SCH (22:53)
[2020-04-02] MEDS: METOPROLOL TARTRATE 1MG/1ML-5ML VIAL IV SCH ×4 (00:29→17:20)
[2020-04-02 05:00] VITALS: BP 127/76
[2020-04-02 06:41] LABS: Basophils # (auto) 0 10 ^3/uL (0-0.2); Basophils % (auto) 0.6 % (0.0-2.0); Eosinophils # (auto) 0.1 10 ^3/uL (0-0.8); Hemoglobin 14.6 g/dL (12.2-16.2); Lymphocytes # (auto) 1.7 10 ^3/uL (0.4-5.4); Lymphocytes % (auto) 22.4 % (10.0-50.0); Mean Corpuscular Hemoglobin 33.1 pg (28.0-32.0); Mean Corpuscular Hgb Conc. 34.9 g/dL (32.0-36.0); Mean Corpuscular Volume 94.9 fL (80.0-100.0); Monocytes # (auto) 0.7 10 ^3/uL (0-1.3); Monocytes % (auto) 9.6 % (0.0-12.0); Neutrophils # (auto) 5.1 10 ^3/uL (1.6-8.6); Neutrophils % (auto) 66.4 % (37.0-80.0); Nucleated Red Blood Cells % 0.1 %; Platelet Count (auto) 169 10^3/uL (140-450); Red Blood Cells 4.43 10^6/uL (4.0-5.20); Red Cell Distribution Width 15.3 % (11.8-14.3); White Blood Cell 7.6 10^3/uL (4.4-10.8)
[2020-04-02] MEDS: FUROSEMIDE 20 MG/2 ML VIAL IV SCH ×2 (06:46→17:19)
[2020-04-02 06:55] LABS: Albumin 3.3 g/dL (3.4-5.0); Anion Gap 8 (5-15); Blood Urea Nitrogen 14 mg/dL (7-18); Calcium 8.2 mg/dL (8.5-10.1); Carbon Dioxide 25 mmol/L (21-32); Chloride 101 mmol/L (98-107); Glucose 122 mg/dL (74-106); Magnesium 2.3 mg/dL (1.6-2.6); Potassium 3.2 mmol/L (3.5-5.1); Sodium 134 mmol/L (136-145)
[2020-04-02 06:57] LABS: INR 1.07 (0.9-1.15); Partial Thromboplastin Time 27.2 sec (23.64-32.05)
[2020-04-02 07:01] LABS: Alanine Aminotransferase 69 U/L (13-56); Alkaline Phosphatase 110 U/L (45-117); Aspartate Aminotransferase 85 U/L (15-37); BUN/Creatinine Ratio 20.3; Bilirubin, Total 1.8 mg/dL (0.2-1.0); GFR African American 109 mL/min; GFR Non-African American 90 mL/min; Phosphorus 1.9 mg/dL (2.5-4.90)
--- NOTE | 2020-04-02 07:25 | NUR ---
Respiratory note: PT ASSESSED FOR PRN MEDNEB. PT FOUND ON RM SP02 94%. PT IS IN DISTRESS.TREATMENT NOT INDICATED. INFORMED PT TO HAVE RT PAGED IF BECOMES SOB.
[2020-04-02 08:00] VITALS: BP 119/69
[2020-04-02] MEDS: ASPirin 81 mg TAB PO SCH (09:16)
[2020-04-02] MEDS: PANTOPRAZOLE 40 MG TAB PO SCH (09:17)
[2020-04-02] MEDS: METOPROLOL SUCCINATE XL 50 MG TAB PO SCH (09:17)
[2020-04-02] MEDS: SERTRALINE HCL 50 MG TAB PO SCH (09:18)
[2020-04-02] MEDS: ENOXAPARIN SOD 40 MG/0.4 ML SYRINGE SC SCH (09:18)
[2020-04-02 09:23] VITALS: BP 119/69
[2020-04-02] MEDS ORDERED: ADENOSINE 72 MG in GIVE UN-DILUTED 0 ML IV STA (09:26)
[2020-04-02] MEDS ORDERED: OPTISON 3ml Vial for INJ IV ONE (09:45)
[2020-04-02] MEDS ORDERED: POTASSIUM EFFERVESENT TAB 25 MEQ PO ONE (11:00)
[2020-04-02 12:38] VITALS: BP 122/66
[2020-04-02 16:36] VITALS: BP 152/83
--- NOTE | 2020-04-02 18:53 | NUR ---
Respiratory note: PRN ASSESSMENT FOR MED NEB TX. PT PRESENTING NO RESPIRATORY DISTRESS AT THIS TIME. HR 99, SPO2 94% ON ROOM AIR, RR 17, BS DIMINISHED/CLEAR. PT PRESENTING NO RESPIRATORY DISTRESS AT THIS TIME. PT STATES MED NEB TX MAKES HER ANXIOUS, REFUSED TX. MED NEB TX NOT INDICATED NOT THIS TIME, WILL CONTINUE TO MONITOR.
[2020-04-02] MEDS ORDERED: METO25TA93 PO (18:55)
[2020-04-02] MEDS ORDERED: ATOR20TA50 PO (18:55)
[2020-04-02] MEDS ORDERED: NORT25CA PO (18:55)
[2020-04-02] MEDS ORDERED: TIZA4CAP PO (18:55)
[2020-04-02 22:00] VITALS: BP 145/95
[2020-04-02] MEDS: ATORVASTATIN 20 MG TAB PO SCH (22:25)
[2020-04-02] MEDS: NORTRIPTYLINE HCL 10 MG CAP PO SCH (22:26)
[2020-04-02] MEDS: traZODone HCL 50 MG TAB PO SCH (22:27)
[2020-04-02] MEDS: LORazepam 0.5 MG TAB PO PRN (22:28)
[2020-04-03 05:00] VITALS: BP 136/80
--- NOTE | 2020-04-03 05:32 | NUR ---
Dr. Richmond called back; order received for Chest/abd x-ray to be done. states he will be in to the hospital 'shortly' and will see pt.
[2020-04-03 05:37] LABS: Basophils # (auto) 0.1 10 ^3/uL (0-0.2); Basophils % (auto) 0.7 % (0.0-2.0); Eosinophils # (auto) 0.2 10 ^3/uL (0-0.8); Eosinophils % (auto) 2.5 % (0.0-7.0); Hematocrit 43.4 % (36.0-46.0); Hemoglobin 15.2 g/dL (12.2-16.2); Lymphocytes # (auto) 1.8 10 ^3/uL (0.4-5.4); Lymphocytes % (auto) 24.4 % (10.0-50.0); Mean Corpuscular Hemoglobin 33.3 pg (28.0-32.0); Mean Corpuscular Hgb Conc. 34.9 g/dL (32.0-36.0); Mean Corpuscular Volume 95.6 fL (80.0-100.0); Monocytes # (auto) 0.8 10 ^3/uL (0-1.3); Monocytes % (auto) 10.2 % (0.0-12.0); Neutrophils # (auto) 4.6 10 ^3/uL (1.6-8.6); Neutrophils % (auto) 62.2 % (37.0-80.0); Platelet Count (auto) 161 10^3/uL (140-450); Red Blood Cells 4.54 10^6/uL (4.0-5.20); Red Cell Distribution Width 15.3 % (11.8-14.3); White Blood Cell 7.4 10^3/uL (4.4-10.8)
[2020-04-03 05:56] LABS: Albumin 3.5 g/dL (3.4-5.0); BUN/Creatinine Ratio 26.7; Calcium 8.2 mg/dL (8.5-10.1)
[2020-04-03 05:59] LABS: Bilirubin, Total 1.3 mg/dL (0.2-1.0); Total Protein 7.6 g/dL (6.4-8.2)
[2020-04-03] MEDS: FUROSEMIDE 20 MG/2 ML VIAL IV SCH (06:04)
[2020-04-03] MEDS: METOPROLOL TARTRATE 1MG/1ML-5ML VIAL IV SCH ×5 (06:05→23:29)
[2020-04-03 06:19] LABS: Potassium 2.8 mmol/L (3.5-5.1)
--- NOTE | 2020-04-03 06:21 | NUR ---
Paged for hospitalist to report critical K of 2.8, received from Maryam Perales in lab.
--- NOTE | 2020-04-03 06:35 | NUR ---
Call from Tele that pt's HR in 120s; found pt supine in bed with freshly brushed hair "and teeth" talking on phone. Denies sx/ no sign of distress. No answer yet from hospitalist. Will endorse to day RN.
[2020-04-03] MEDS ORDERED: POTASSIUM CHL 20 Meq TABLET PO ONE (07:15)
--- NOTE | 2020-04-03 07:16 | NUR ---
CRITICAL VALUE OF POTASSIUM 2.8. PAGED HOSPITAL LIST. JOYCELYN NAVAS RETURNED PAGED AND ORDERED 40 Meq OF PO POTASSIUM.
[2020-04-03 07:48] VITALS: BP 123/86
[2020-04-03] MEDS: NEUTRA-PHOS TABLET PO SCH ×3 (08:24→17:48)
[2020-04-03 08:27] VITALS: BP 123/86
[2020-04-03] MEDS: SERTRALINE HCL 50 MG TAB PO SCH (09:22)
[2020-04-03] MEDS: PANTOPRAZOLE 40 MG TAB PO SCH (09:23)
[2020-04-03] MEDS: ENOXAPARIN SOD 40 MG/0.4 ML SYRINGE SC SCH (09:23)
[2020-04-03] MEDS: METOPROLOL SUCCINATE XL 50 MG TAB PO SCH (09:23)
[2020-04-03] MEDS: ASPirin 81 mg TAB PO SCH (09:23)
[2020-04-03] MEDS ORDERED: POTASSIUM EFFERVESENT TAB 25 MEQ PO ONE (09:30)
[2020-04-03] MEDS ORDERED: IOHEXOL 350 MG/ML 100ML IJ ONE (11:26)
[2020-04-03 12:30] VITALS: BP 129/64
--- NOTE | 2020-04-03 13:22 | NUR ---
PT ASSESSED FOR PRN BREATHING TX. PT IN NO DISTRESS. PT ON RA WITH SPO2 95%, HR 112, RR 20 WITH CLEAR BS. NO INDICATION FOR PRN MED NEB.
[2020-04-03 16:24] VITALS: BP 110/66
--- NOTE | 2020-04-03 18:06 | NUR ---
PT ASSESSED FOR PRN MED NEB TX. SPO2 92% ON RA. PT DENIES ANY RESPIRATORY DISTRESS. NO TX INDICATED. PT IS AWARE TO HAVE RT PAGED IF TX NEEDED.
--- NOTE | 2020-04-03 20:15 | NUR ---
Opening note pt is A&Ox3. respirations are even and nonlabored on room air. no complaints of pain or discomfort at this time. Chicas in place, patent and draining to gravity. POC discussed with patient. bed in low locked position, call light within reach.
[2020-04-03] MEDS: traZODone HCL 50 MG TAB PO SCH (21:24)
[2020-04-03] MEDS: NORTRIPTYLINE HCL 10 MG CAP PO SCH (21:25)
[2020-04-03] MEDS: ATORVASTATIN 20 MG TAB PO SCH (21:25)
[2020-04-03 22:00] VITALS: BP 142/84
--- NOTE | 2020-04-04 02:50 | NUR ---
rounds pt resting in left lateral position with eyes closed. no s/s of pain or discomfort. will continue to monitor.
[2020-04-04 05:00] VITALS: BP 124/84
[2020-04-04 05:14] LABS: BUN/Creatinine Ratio 21.1; Calcium 8.5 mg/dL (8.5-10.1); Potassium 3.1 mmol/L (3.5-5.1)
[2020-04-04] MEDS: METOPROLOL TARTRATE 1MG/1ML-5ML VIAL IV SCH (05:34)
--- NOTE | 2020-04-04 07:17 | NUR ---
closing note pt resting in left lateral position with eyes closed. no s/s of pain or distress. endorsed care to DERICK Sorensen.
--- NOTE | 2020-04-04 07:22 | NUR ---
Opening Shift Note Assumed care of patient, awake and alert. No S/S of distress/SOB or pain. Instructed on POC and to call for assist PRN, will continue to monitor for changes Q1hr and PRN.
[2020-04-04] MEDS: NEUTRA-PHOS TABLET PO SCH ×2 (08:04→13:47)
[2020-04-04] MEDS ORDERED: POTASSIUM CHL 20 Meq TABLET PO ONE (08:15)
[2020-04-04] MEDS ORDERED: POTASSIUM EFFERVESENT TAB 25 MEQ PO ONE (08:30)
[2020-04-04 09:00] VITALS: BP 130/74
[2020-04-04] MEDS: PANTOPRAZOLE 40 MG TAB PO SCH (10:24)
[2020-04-04] MEDS: ASPirin 81 mg TAB PO SCH (10:24)
[2020-04-04] MEDS: ENOXAPARIN SOD 40 MG/0.4 ML SYRINGE SC SCH (10:25)
[2020-04-04] MEDS: METOPROLOL SUCCINATE XL 50 MG TAB PO SCH (10:25)
[2020-04-04] MEDS: SERTRALINE HCL 50 MG TAB PO SCH (10:25)
[2020-04-04] MEDS ORDERED: AMLO10TA13 PO (11:04)
[2020-04-04] MEDS ORDERED: PANT40T PO (11:04)
[2020-04-04] MEDS ORDERED: METO-6 PO (11:04)
[2020-04-04] MEDS ORDERED: LOSA-69 PO (11:06)
[2020-04-04 12:04] VITALS: BP 130/74
[2020-04-04 13:00] VITALS: BP 131/82
--- NOTE | 2020-04-04 15:50 | NUR ---
Discharge instructions given as ordered. Encourage to follow up with PMD as instructed. All questions and concerns addressed. Patient verbalized understanding. Medication reconciliation form completed and copy given to patient. IV removed with catheter intact, pressure dressing applied, lovelace catheter removed. Telemetry unit returned to ICU. Patient taken to vehicle via wheelchair with all personal belongings, accompanied by staff to family member. No distress noted at time of departure.
== END 2020-04-04 15:45 | disposition home or self-care (01) | DRG 280 ==
LOC: ER 12:48 → TELE 12:49 → TELE-WESTW 17:50
PROVIDERS: ADMIT Hospitalist; ATTEND Internal Medicine Nephrology
DX: I11.0 Hypertensive heart disease with heart failure (principal); I21.A1 Myocardial infarction type 2; J96.01 Acute respiratory failure with hypoxia; I16.1 Hypertensive emergency; E44.0 Moderate protein-calorie malnutrition; F10.239 Alcohol dependence with withdrawal, unspecified; I50.33 Acute on chronic diastolic (congestive) heart failure; I45.10 Unspecified right bundle-branch block; E87.6 Hypokalemia; F41.1 Generalized anxiety disorder; D75.1 Secondary polycythemia; E66.9 Obesity, unspecified; E78.5 Hyperlipidemia, unspecified; F32.9 Major depressive disorder, single episode, unspecified; K21.9 Gastro-esophageal reflux disease without esophagitis; J44.9 Chronic obstructive pulmonary disease, unspecified; K76.0 Fatty (change of) liver, not elsewhere classified; Z79.899 Other long term (current) drug therapy; Z90.49 Acquired absence of other specified parts of digestive tract; Z83.3 Family history of diabetes mellitus; Z82.49 Family history of ischemic heart disease and other diseases of the circulatory system; Z88.8 Allergy status to other drugs, medicaments and biological substances; Z79.82 Long term (current) use of aspirin; Z68.28 Body mass index [BMI] 28.0-28.9, adult
CPT/HCPCS: 36415; 36600; 51702; 71045; 71275; 76700; 78452; 80048; 80053; 80061; 80307; 81001; 82805; 82962; 83036; 83690; 83735; 83880; 83970; 84100; 84439; 84443; 84484; 85025; 85379; 85610; 85730; 87040; 93005; 93017; 93306; 94640; 96361; 96365; 96366; 96368; 96375; 99291; G0378; J0153; J2405; J3480; J7060; Q9956

== ENCOUNTER 2020-11-19 19:12 | Emergency (ER) | payer MEDICARE ==
[~2020-11-19] VITALS: Ht 167.6 cm; Wt 68.0 kg
[~2020-11-19 19:12] MED LIST: ATOR20TA50 PO; METO-6 PO; NORT25CA PO; PANT40T PO; TIZA4CAP PO
[2020-11-20] MEDS ORDERED: LIDOCAINE W/ EPINEPHRINE 2% INJ 20ML VIAL ID ONE
[2020-11-20 00:06] LABS: Basophils # (auto) 0.1 10 ^3/uL (0-0.2); Basophils % (auto) 0.7 % (0.0-2.0); Eosinophils # (auto) 0 10 ^3/uL (0-0.8); Eosinophils % (auto) 0.4 % (0.0-7.0); Hematocrit 40.1 % (36.0-46.0); Hemoglobin 13.8 g/dL (12.2-16.2); Lymphocytes # (auto) 2.6 10 ^3/uL (0.4-5.4); Lymphocytes % (auto) 23.5 % (10.0-50.0); Mean Corpuscular Hemoglobin 31.5 pg (28.0-32.0); Mean Corpuscular Hgb Conc. 34.3 g/dL (32.0-36.0); Mean Corpuscular Volume 91.7 fL (80.0-100.0); Monocytes # (auto) 0.7 10 ^3/uL (0-1.3); Monocytes % (auto) 6.5 % (0.0-12.0); Neutrophils # (auto) 7.6 10 ^3/uL (1.6-8.6); Neutrophils % (auto) 68.9 % (37.0-80.0); Nucleated Red Blood Cells % 0.1 %; Platelet Count (auto) 293 10^3/uL (140-450); Red Blood Cells 4.37 10^6/uL (4.0-5.20); Red Cell Distribution Width 14.8 % (11.8-14.3)
[2020-11-20 01:02] LABS: Albumin 3.7 g/dL (3.4-5.0); Calcium 8.3 mg/dL (8.5-10.1); Carbon Dioxide 27 mmol/L (21-32); GFR African American 90 mL/min; GFR Non-African American 75 mL/min; Glucose 124 mg/dL (74-106)
[2020-11-20 01:03] LABS: Lactic Acid w/Reflex 2.7 mmol/L (0.4-2.0)
[2020-11-20 01:23] LABS: Alanine Aminotransferase 30 U/L (13-56); Alkaline Phosphatase 78 U/L (45-117); Anion Gap 8 (5-15); Aspartate Aminotransferase 25 U/L (15-37); Bilirubin, Total 0.2 mg/dL (0.2-1.0); Blood Urea Nitrogen 13 mg/dL (7-18); Chloride 108 mmol/L (98-107); Potassium 4.1 mmol/L (3.5-5.1); Sodium 143 mmol/L (136-145); Total Protein 7.4 g/dL (6.4-8.2)
[2020-11-20] MEDS ORDERED: SODIUM CHLORIDE 0.9% 1,000 ML IV ONE ×2 (02:00)
[2020-11-20] MEDS ORDERED: THIAMINE INJ 100 MG in SODIUM CHLORIDE 0.9% 1,000 ML IV ONE (02:00)
[2020-11-20] MEDS ORDERED: THIAMINE 100mg/ml INJ (200mg/2ml VIAL) ONE (03:05)
[2020-11-20] MEDS ORDERED: HYDROcodone-ACET 5/325MG TAB PO ONE (04:45)
[2020-11-20 05:00] VITALS: BP 102/62
== END 2020-11-20 08:21 | disposition left against medical advice (07) ==
LOC: EDBD 19:12 → ER 19:14
DX: S09.90XA Unspecified injury of head, initial encounter (principal); S16.1XXA Strain of muscle, fascia and tendon at neck level, initial encounter; S01.01XA Laceration without foreign body of scalp, initial encounter; K72.90 Hepatic failure, unspecified without coma; F10.20 Alcohol dependence, uncomplicated; R41.82 Altered mental status, unspecified; I10 Essential (primary) hypertension; K21.9 Gastro-esophageal reflux disease without esophagitis; R55 Syncope and collapse; Z79.899 Other long term (current) drug therapy; Z90.49 Acquired absence of other specified parts of digestive tract; X58.XXXA Exposure to other specified factors, initial encounter; Y93.89 Activity, other specified; Y92.89 Other specified places as the place of occurrence of the external cause; Y99.8 Other external cause status
CPT/HCPCS: 36415; 70450; 72125; 80053; 80320; 82140; 83605; 84484; 85025; 96361; 96365; 99285; J3411; J7030

== ENCOUNTER 2021-06-08 07:49 | Day surgery (SDC) | payer MEDICARE ==
[~2021-06-08] VITALS: Ht 172.7 cm; Wt 79.4 kg
[~2021-06-08 07:49] MED LIST changes: +AMLO-489 PO; +BENZ200C64 PO; +LOSA-69 PO; -NORT25CA PO; +POTA10TA51 PO; +SERT50TA PO; +TRAZPOW PO
[2021-06-08] MEDS ORDERED: VERAPAMIL 2.5MG/ML INJ 2ML VIAL IV ONE (09:56)
[2021-06-08] MEDS ORDERED: ANGIOMAX 250 MG VIAL IV ONE (09:56)
[2021-06-08] MEDS ORDERED: HEPARIN SODIUM (PORCINE) 5000 UNITS/ML 1ML VIAL ONE (09:56)
[2021-06-08] MEDS ORDERED: MIDAZOLAM HCL 1MG/1ML-2 ML VIAL ONE (09:57)
[2021-06-08] MEDS ORDERED: LIDOCAINE 2%HCL (LOCAL ANESTH.) INJ 20ML MDV ONE (09:57)
[2021-06-08] MEDS ORDERED: IODIXANOL 320MG/ML 100ML BTL IV ONE (09:57)
[2021-06-08] MEDS ORDERED: SODIUM CHL 0.9% 50 ML ONE (09:57)
[2021-06-08] MEDS ORDERED: fentaNYL CITRATE 100 MCG/2 ML VL ONE (09:57)
[2021-06-08] MEDS ORDERED: ACETAMINOPHEN 500 MG TAB PO PRN (11:00)
[2021-06-08] MEDS ORDERED: HYDROcodone-ACET 5/325MG TAB PO PRN (11:00)
[2021-06-08] MEDS ORDERED: ONDANSETRON HCL 4 MG/2 ML VIAL IV PRN (11:00)
== END 2021-06-08 14:06 | disposition home or self-care (01) ==
LOC: CATH 07:49
PROVIDERS: ATTEND Internal Medicine
DX: I25.118 Atherosclerotic heart disease of native coronary artery with other forms of angina pectoris (principal); I50.9 Heart failure, unspecified; F32.9 Major depressive disorder, single episode, unspecified; F41.9 Anxiety disorder, unspecified; Z88.8 Allergy status to other drugs, medicaments and biological substances; Z98.890 Other specified postprocedural states; Z20.822 Contact with and (suspected) exposure to COVID-19
CPT/HCPCS: 93458; C1769; C1887; C1894; J1644; J2250; J3010; Q9967; U0003; 99152; 99153

== ENCOUNTER 2022-09-12 20:57 | Inpatient (IN) | payer BC, MEDICARE ==
[~2022-09-12] VITALS: Ht 172.7 cm; Wt 106.6 kg
[2022-09-12] MEDS ORDERED: MORPHINE SULFATE 4 MG/ML SYR/VIAL IV ONE (22:15)
[2022-09-12 23:22] LABS: Basophils # (auto) 0.1 10 ^3/uL (0-0.2); Basophils % (auto) 1.3 % (0.0-2.0); Eosinophils # (auto) 0.4 10 ^3/uL (0-0.8); Eosinophils % (auto) 6.5 % (0.0-7.0); Hemoglobin 13.9 g/dL (12.2-16.2); Lymphocytes # (auto) 1.3 10 ^3/uL (0.4-5.4); Lymphocytes % (auto) 18.6 % (10.0-50.0); Mean Corpuscular Volume 88.4 fL (80.0-100.0); Monocytes # (auto) 0.6 10 ^3/uL (0-1.3); Neutrophils # (auto) 4.4 10 ^3/uL (1.6-8.6); Neutrophils % (auto) 64.6 % (37.0-80.0); Nucleated Red Blood Cells % 0.1 %; Red Blood Cells 4.64 10^6/uL (4.0-5.20); Red Cell Distribution Width 14.3 % (11.8-14.3); White Blood Cell 6.8 10^3/uL (4.4-10.8)
[2022-09-12 23:39] LABS: INR 0.94 (0.9-1.15)
[2022-09-12 23:42] LABS: Albumin 3.4 g/dL (3.4-5.0); BUN/Creatinine Ratio 17.9; Calcium 8.7 mg/dL (8.5-10.1)
[2022-09-12 23:44] LABS: Bilirubin, Total 0.4 mg/dL (0.2-1.0); Total Protein 6.6 g/dL (6.4-8.2)
[2022-09-13] MEDS ORDERED: ACETAMINOPHEN 325 MG TAB PO PRN (01:00)
[2022-09-13] MEDS: HYDROcodone-ACET 5/325MG TAB PO PRN ×5 (01:26→22:44)
[2022-09-13] MEDS ORDERED: KETOROLAC TROMETH 30 MG/ML 1ML VIAL IV ONE (04:30)
[2022-09-13] MEDS: MORPHINE SULFATE INJ 2 MG/ml SYRG IV PRN ×3 (06:41→15:32)
[2022-09-13] MEDS: LOSARTAN POTASSIUM 50 MG TAB PO SCH (10:13)
[2022-09-13] MEDS: amLODIPine BESYLATE 5 MG TAB PO SCH (10:13)
[2022-09-13] MEDS: ONDANSETRON HCL 4 MG/2 ML VIAL IV PRN ×2 (10:47→15:23)
[2022-09-13 16:00] VITALS: BP 133/70
[2022-09-13 16:48] VITALS: BP 133/70
[2022-09-13] MEDS ORDERED: HYDROmorphone HCL 2 MG/ML VL/or syr IV ONE (18:30)
[2022-09-13] MEDS: HYDROmorphone HCL 2 MG/ML VL/or syr IV PRN (21:15)
[2022-09-13] MEDS: ATORVASTATIN 20 MG TAB PO SCH (21:16)
[2022-09-13 22:00] VITALS: BP 136/84
[2022-09-13] MEDS: TEMAZEPAM 15 MG CAP PO PRN (22:44)
[2022-09-14] MEDS: HYDROmorphone HCL 2 MG/ML VL/or syr IV PRN ×8 (01:16→23:46)
[2022-09-14] MEDS: HYDROcodone-ACET 5/325MG TAB PO PRN (03:38)
[2022-09-14 05:00] VITALS: BP 131/70
[2022-09-14 05:47] LABS: INR 0.97 (0.9-1.15); Partial Thromboplastin Time 32.1 sec (24.6-33.4)
[2022-09-14 05:52] LABS: Basophils # (auto) 0.1 10 ^3/uL (0-0.2); Eosinophils # (auto) 0.5 10 ^3/uL (0-0.8); Hematocrit 37.7 % (36.0-46.0); Lymphocytes # (auto) 1.3 10 ^3/uL (0.4-5.4); Lymphocytes % (auto) 20.1 % (10.0-50.0); Mean Corpuscular Hemoglobin 30.4 pg (28.0-32.0); Mean Corpuscular Hgb Conc. 34.4 g/dL (32.0-36.0); Mean Corpuscular Volume 88.3 fL (80.0-100.0); Monocytes # (auto) 0.6 10 ^3/uL (0-1.3); Monocytes % (auto) 9.6 % (0.0-12.0); Neutrophils % (auto) 62.3 % (37.0-80.0); Nucleated Red Blood Cells % 0.1 %; Red Blood Cells 4.27 10^6/uL (4.0-5.20); Red Cell Distribution Width 14.3 % (11.8-14.3); White Blood Cell 6.5 10^3/uL (4.4-10.8)
[2022-09-14 05:56] LABS: Potassium 4.1 mmol/L (3.5-5.1)
[2022-09-14 06:04] LABS: Albumin 3.3 g/dL (3.4-5.0); BUN/Creatinine Ratio 28.3; Bilirubin, Total 0.9 mg/dL (0.2-1.0); Calcium 8.5 mg/dL (8.5-10.1); Total Protein 6.4 g/dL (6.4-8.2)
[2022-09-14] MEDS ORDERED: HYDROmorphone HCL 2 MG/ML VL/or syr IV ONE (07:45)
[2022-09-14 08:00] VITALS: BP 136/73
[2022-09-14 08:30] VITALS: BP 136/73
[2022-09-14] MEDS: LOSARTAN POTASSIUM 50 MG TAB PO SCH (11:25)
[2022-09-14] MEDS: amLODIPine BESYLATE 5 MG TAB PO SCH (11:26)
[2022-09-14 12:30] VITALS: BP 141/75
[2022-09-14] MEDS: LORazepam 2MG/ML-1ML VIAL IV PRN (15:00)
[2022-09-14] MEDS ORDERED: TETRACAINE 1% INJ 2 ML VIAL IJ ONE ×2 (15:52→16:52)
[2022-09-14] MEDS ORDERED: PROPOFOL 10 MG/ML 20 ML IV ONE ×2 (16:54→18:32)
[2022-09-14] MEDS ORDERED: MORPHINE SULF PF 5 MG/10 ML VIAL ONE (16:54)
[2022-09-14] MEDS ORDERED: fentaNYL CITRATE 100 MCG/2 ML VL ONE (16:54)
[2022-09-14] MEDS ORDERED: MIDAZOLAM HCL 2MG/2ML 2ml VIAL (1mg/ml) ONE ×3 (16:54→17:16)
[2022-09-14] MEDS ORDERED: ONDANSETRON HCL 4 MG/2 ML VIAL ONE (16:54)
[2022-09-14] MEDS ORDERED: SODIUM CHLORIDE LOCK 10 ML ONE (16:54)
[2022-09-14] MEDS ORDERED: EPINEPHrine HCL 1 MG/1 ML AMP ONE (16:54)
[2022-09-14] MEDS ORDERED: ceFAZolin 1GM/50ML 100 ML IV ONE (17:38)
[2022-09-14] MEDS ORDERED: DexAMETHasone SOD PHOS 10MG/1ML VIAL INJ ONE (18:04)
[2022-09-14] MEDS ORDERED: MORPHINE SULFATE 4 MG/ML SYR/VIAL IV PRN (19:15)
[2022-09-14] MEDS ORDERED: METOCLOPRAMIDE HCL 5MG/ml INJ 2ml VIAL IV PRN (19:15)
[2022-09-14] MEDS ORDERED: HYDROmorphone HCL 2 MG/ML VL/or syr IV PRN (19:15)
[2022-09-14] MEDS ORDERED: HYDROmorphone HCL 2 MG/ML VL/or syr ONE (19:17)
[2022-09-14] MEDS ORDERED: diphenhdrAMINE HCL 50 MG/1 ML VL ONE (20:16)
[2022-09-14] MEDS ORDERED: diphenhdrAMINE HCL 50 MG/1 ML VL IV ONE (20:20)
[2022-09-14 22:00] VITALS: BP 99/57
[2022-09-14] MEDS: ceFAZolin 2 GM in D5W 5% 100 ML IV SCH (23:00)
[2022-09-14] MEDS: SODIUM CHLOR 0.9% PF (SALINE LOCK) 10ML VIAL/SYR IV SCH (23:00)
[2022-09-14] MEDS: LACTATED RINGER'S 1,000 ML IV SCH (23:00)
[2022-09-14] MEDS: ATORVASTATIN 20 MG TAB PO SCH (23:00)
[2022-09-15] MEDS: LORazepam 2MG/ML-1ML VIAL IV PRN (02:16)
[2022-09-15] MEDS: HYDROmorphone HCL 2 MG/ML VL/or syr IV PRN ×2 (04:19→08:26)
[2022-09-15 05:00] VITALS: BP 119/70
[2022-09-15] MEDS: LACTATED RINGER'S 1,000 ML IV SCH ×2 (05:06→14:18)
[2022-09-15] MEDS: HYDROcodone-ACET 10/325MG TAB PO PRN ×2 (06:16→19:46)
[2022-09-15] MEDS: SODIUM CHLOR 0.9% PF (SALINE LOCK) 10ML VIAL/SYR IV SCH ×3 (06:20→22:36)
[2022-09-15] MEDS: ceFAZolin 2 GM in D5W 5% 100 ML IV SCH ×3 (06:20→22:36)
[2022-09-15 09:00] VITALS: BP 146/80
[2022-09-15] MEDS: LOSARTAN POTASSIUM 50 MG TAB PO SCH (09:54)
[2022-09-15] MEDS: amLODIPine BESYLATE 5 MG TAB PO SCH (09:55)
[2022-09-15] MEDS: PANTOPRAZOLE 40 MG TAB PO SCH (09:55)
[2022-09-15] MEDS: ENOXAPARIN SOD 40 MG/0.4 ML SYRINGE SC SCH (09:56)
[2022-09-15] MEDS ORDERED: ENOXAPARIN SOD 40 MG/0.4 ML SYRINGE SC SCH (10:00)
[2022-09-15 12:57] VITALS: BP 123/88
[2022-09-15 17:00] VITALS: BP 133/64
[2022-09-15 17:02] VITALS: BP 133/64
[2022-09-15 22:00] VITALS: BP 137/74
[2022-09-15] MEDS: ATORVASTATIN 20 MG TAB PO SCH (22:34)
[2022-09-15] MEDS: MIRTAZAPINE 30 MG TAB PO SCH (22:34)
[2022-09-16] VITALS (7 sets, daily range): BP systolic 101–140; BP diastolic 52–71
[2022-09-16] MEDS: TEMAZEPAM 15 MG CAP PO PRN (00:41)
[2022-09-16] MEDS: LACTATED RINGER'S 1,000 ML IV SCH ×3 (01:37→21:00)
[2022-09-16] MEDS: ceFAZolin 2 GM in D5W 5% 100 ML IV SCH ×3 (05:45→21:54)
[2022-09-16] MEDS: SODIUM CHLOR 0.9% PF (SALINE LOCK) 10ML VIAL/SYR IV SCH ×2 (05:45→14:07)
[2022-09-16] MEDS: amLODIPine BESYLATE 5 MG TAB PO SCH (09:05)
[2022-09-16] MEDS: LOSARTAN POTASSIUM 50 MG TAB PO SCH (09:05)
[2022-09-16] MEDS: PANTOPRAZOLE 40 MG TAB PO SCH (09:06)
[2022-09-16] MEDS: ENOXAPARIN SOD 40 MG/0.4 ML SYRINGE SC SCH (09:06)
[2022-09-16] MEDS: SERTRALINE HCL 50 MG TAB PO SCH (09:06)
[2022-09-16] MEDS: HYDROcodone-ACET 10/325MG TAB PO PRN (09:07)
[2022-09-16 09:43] LABS: Basophils # (auto) 0.1 10 ^3/uL (0-0.2); Eosinophils # (auto) 0.1 10 ^3/uL (0-0.8); Hematocrit 33.7 % (36.0-46.0); Hemoglobin 11.7 g/dL (12.2-16.2); Lymphocytes # (auto) 1.7 10 ^3/uL (0.4-5.4); Lymphocytes % (auto) 20.2 % (10.0-50.0); Mean Corpuscular Hemoglobin 30.6 pg (28.0-32.0); Mean Corpuscular Hgb Conc. 34.6 g/dL (32.0-36.0); Mean Corpuscular Volume 88.2 fL (80.0-100.0); Monocytes # (auto) 0.7 10 ^3/uL (0-1.3); Monocytes % (auto) 7.9 % (0.0-12.0); Neutrophils # (auto) 5.8 10 ^3/uL (1.6-8.6); Neutrophils % (auto) 69.9 % (37.0-80.0); Red Blood Cells 3.82 10^6/uL (4.0-5.20); Red Cell Distribution Width 14.3 % (11.8-14.3); White Blood Cell 8.4 10^3/uL (4.4-10.8)
[2022-09-16 09:59] LABS: BUN/Creatinine Ratio 21.2; Calcium 8.3 mg/dL (8.5-10.1); Potassium 3.4 mmol/L (3.5-5.1)
[2022-09-16] MEDS: HYDROmorphone HCL 2 MG/ML VL/or syr IV PRN ×3 (12:12→21:15)
[2022-09-16] MEDS: MIRTAZAPINE 30 MG TAB PO SCH (21:07)
[2022-09-16] MEDS: ATORVASTATIN 20 MG TAB PO SCH (21:12)
[2022-09-17] MEDS: SODIUM CHLOR 0.9% PF (SALINE LOCK) 10ML VIAL/SYR IV SCH ×2 (02:08→06:43)
[2022-09-17] MEDS: HYDROmorphone HCL 2 MG/ML VL/or syr IV PRN ×3 (02:17→10:52)
[2022-09-17 05:00] VITALS: BP 122/56
[2022-09-17] MEDS: ceFAZolin 2 GM in D5W 5% 100 ML IV SCH (05:59)
[2022-09-17] MEDS: LACTATED RINGER'S 1,000 ML IV SCH (06:49)
[2022-09-17 07:30] VITALS: BP 112/62
[2022-09-17 09:00] VITALS: BP_SYST 105; BP_SYST 114; BP_DIAS 63; BP_DIAS 69
[2022-09-17] MEDS: PANTOPRAZOLE 40 MG TAB PO SCH (09:21)
[2022-09-17] MEDS: SERTRALINE HCL 50 MG TAB PO SCH (09:21)
[2022-09-17] MEDS: amLODIPine BESYLATE 5 MG TAB PO SCH (09:22)
[2022-09-17] MEDS: LOSARTAN POTASSIUM 50 MG TAB PO SCH (09:22)
[2022-09-17] MEDS: ENOXAPARIN SOD 40 MG/0.4 ML SYRINGE SC SCH (09:23)
[2022-09-17 10:52] VITALS: BP 105/63
== END 2022-09-17 11:40 | DRG 493 ==
LOC: ER 20:57 → OVERFLOW 09-13 00:56 → WEST WING 09-13 16:00
PROVIDERS: ADMIT Nurse Practitioner; ATTEND Internal Medicine
PROC: 0QSG36Z Reposition Right Tibia with Intramedullary Internal Fixation Device, Percutaneous Approach (ICD-10-PCS; principal; 2022-09-14 17:07)
DX: S82.231A Displaced oblique fracture of shaft of right tibia, initial encounter for closed fracture (principal); F33.1 Major depressive disorder, recurrent, moderate; S82.431A Displaced oblique fracture of shaft of right fibula, initial encounter for closed fracture; E78.5 Hyperlipidemia, unspecified; F41.9 Anxiety disorder, unspecified; G89.29 Other chronic pain; J45.909 Unspecified asthma, uncomplicated; W18.39XA Other fall on same level, initial encounter; I50.9 Heart failure, unspecified; I11.0 Hypertensive heart disease with heart failure; Z20.822 Contact with and (suspected) exposure to COVID-19; K21.9 Gastro-esophageal reflux disease without esophagitis; Z88.8 Allergy status to other drugs, medicaments and biological substances; Z83.3 Family history of diabetes mellitus; Z80.3 Family history of malignant neoplasm of breast; Y93.89 Activity, other specified; Y92.89 Other specified places as the place of occurrence of the external cause; Y99.8 Other external cause status; Z90.49 Acquired absence of other specified parts of digestive tract
CPT/HCPCS: 36415; 71045; 73562; 73590; 73610; 73700; 76000; 80048; 80053; 85025; 85610; 85730; 86850; 86900; 86901; 87426; 93005; 93306; 96374; 96375; 96376; G0378; J0171; J0690; J1100; J1885; J2250; J2405; J2704; J7060